=== PATIENT | male | born 2000 | race American Indian/Alaskan Native ===

== ENCOUNTER 2021-08-21 12:41 | Emergency (ER) | payer SELFPAY ==
[2021-08-21 13:02] VITALS: BP 121/58
[2021-08-21] MEDS ORDERED: IBUPROFEN 800 MG TAB PO ONE (13:08)
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
== END 2021-08-21 13:26 | disposition home or self-care (01) ==
LOC: ED 12:41
DX: T14.8XXA Other injury of unspecified body region, initial encounter (principal); V89.2XXA Person injured in unspecified motor-vehicle accident, traffic, initial encounter; Y93.89 Activity, other specified; Y92.89 Other specified places as the place of occurrence of the external cause; Y99.8 Other external cause status
CPT/HCPCS: 99282